=== PATIENT | male | born 1945 | race Caucasian/White ===

== ENCOUNTER 2018-03-27 10:14 | Emergency (ER) | payer MEDICARE ==
[2016-08-26 17:16] VITALS: Wt 79.4 kg
--- NOTE | 2018-03-27 10:17 | ER Report ---
History and Physical Time Seen By MD: 10:17 (ALIVIA ELLIOTT DO) HPI/ROS CHIEF COMPLAINT: Fall, left-sided pain HISTORY OF PRESENT ILLNESS: Patient is a 73-year-old male here with complaints of left-sided chest pain, back pain after falling last night. Patient reportedly slept on the floor overnight and woke up complaining of shortness breath, severe pain. The patient had marked difficulty taking a deep breath, headache exam n otable for crepitus of the left chest. Diminished breath sounds on the left side. Patient received fentanyl 200 g by EMS prior to arrival. REVIEW OF SYSTEMS: Constitutional: No fever, no chills. Eyes: No discharge. ENT: No sore throat. Cardiovascular: + left sided chest pain and crepitus on palpation of left chest wall, no palpitations. Respiratory: No cough, + significant shortness of breath, + diminished BS of left lung. Gastrointestinal: No abdominal pain, no vomiting. Genitourinary: No hematuria. Musculoskeletal: + back pain. Skin: No rashes. Neurological: No headache. Moving all extremities (ALIVIA ELLIOTT DO) Allergies: Coded Allergies: No Known Drug Allergies (Unverified , 07/12/13) Home Meds Active Scripts Tiotropium [place] (SPIRIVA) 18 Mcg/Cap Inh, 1 PUFF INH QDAYR, #1 INH Prov:NIC GIBSON MD 08/31/16 Reported Medications Budesonide/Formoterol Fumarate (SYMBICORT 160-4.5 MCG INHALER) 10.2 Gm Inh, 10.2 GM INH BID, INH 09/14/14 Ipratropium/Albuterol Sulfate (DUONEB 0.5 MG-3 MG/3 ML SOLN) 3 Ml Ampul.neb, 3 ML IH Q6-8H PRN for SHORTNESS OF BREATH 07/12/13 Hx Smoking: Yes Smoking Status: Former Smoker Exposure to Second Hand Smoke?: No Hx Substance Use Disorder: No Hx Alcohol Use: Yes (DAILY) (ALIVIA ELLIOTT DO) Constitutional Vital Sign - Last 24 Hours 03/27/18 03/27/18 03/27/18 03/27/18 10:45 10:56 11:05 11:10 Pulse 90 Resp 16 B/P (MAP) 162/95 159/72 (101) 156/78 (104) Pulse Ox 99 O2 Delivery Non-Rebreather O2 Flow Rate 15.0 03/27/18 03/27/18 03/27/18 03/27/18 11:15 11:20 11:25 11:34 Temp 98.0 Pulse 87 Resp 19 B/P (MAP) 155/68 (97) 156/69 (98) 147/77 (100) Pulse Ox 85 (JOCELYNE VITAL PHLEBOTOMY PROGRAM COORDINATOR-BC) Physical Exam General Appearance: The patient is alert, has no immediate need for airway protection and no signs of toxicity. Moderate distress secondary to pain and shortness breath Eyes: Pupils equal and round no pallor or injection. ENT, Mouth: Mucous membranes are moist. Respiratory: Diminished lung sounds the left lower lung shaffer. Crepitus on palpation of the left chest wall Cardiovascular: Regular rate and rhythm. Gastrointestinal: Abdomen is soft and non tender, no masses, bowel sounds josé miguel l. Neurological: Moving all extremities spontaneously, alert and oriented Skin: Warm and dry, no rashes. Musculoskeletal: Neck is supple + tender on palpation Extremities are nontender, nonswollen and have full range of motion. DIFFERENTIAL DIAGNOSIS: After history and physical exam differential diagnosis was considered for pneumothorax, fracture, hematoma, musculoskeletal strain, intracranial bleed, spinal fracture (ALIVIA ELLIOTT DO) Medical Decision Making Data Points Result Diagram: 03/27/18 0956 03/27/18 0956 Laboratory Hematology Test 03/27/18 00:00 03/27/18 09:56 03/27/18 10:50 Total Creatine Kinase 848 U/L (55-170) Red Blood Count 4.55 M/uL (4.00-5.60) Mean Corpuscular Volume 100.6 fL (80.0-96.0) Mean Corpuscular Hemoglobin 34.0 pg (26.0-33.0) Mean Corpuscular Hemoglobin Concent 33.8 g/dL (32.0-36.0) Red Cell Distribution Width 13.0 % (11.5-14.5) Mean Platelet Volume 7.3 fL (7.2-11.1) Neutrophils (%) (Auto) 79.2 % (39.4-72.5) Lymphocytes (%) (Auto) 13.1 % (17.6-49.6) Monocytes (%) (Auto) 7.1 % (4.1-12.4) Eosinophils (%) (Auto) 0.1 % (0.4-6.7) Basophils (%) (Auto) 0.5 % (0.3-1.4) Nucleated RBC Relative Count (auto) 0.1 /100WBC Neutrophils # (Auto) 10.2 K/uL (2.0-7.4) Lymphocytes # (Auto) 1.7 K/uL (1.3-3.6) Monocytes # (Auto) 0.9 K/uL (0.3-1.0) Eosinophils # (Auto) 0.0 K/uL (0.0-0.5) Basophils # (Auto) 0.1 K/uL (0.0-0.1) Nucleated RBC Absolute Count (auto) 0.01 K/uL Prothrombin Time 11.8 seconds (12.0-14.4) Prothromb Time International Ratio 0.87 Activated Partial Thromboplast Time 26 seconds (23-35) Sodium Level 129 mmol/L (137-145) Potassium Level 4.8 mmol/L (3.5-5.0) Chloride Level 95 mmol/L (98-107) Carbon Dioxide Level 24 mmol/L (22-30) Blood Urea Nitrogen 10 mg/dl (9-21) Creatinine 0.70 mg/dl (0.66-1.25) Glomerular Filtration Rate Calc > 60.0 Random Glucose 100 mg/dl (75-110) Lactate 1.8 mmol/L (0.7-2.1) Calcium Level 9.2 mg/dl (8.4-10.2) Total Bilirubin 1.2 mg/dl (0.2-1.3) Aspartate Amino Transf (AST/SGOT) 56 U/L (0-35) Alanine Aminotransferase (ALT/SGPT) 36 U/L (0-56) Alkaline Phosphatase 122 U/L (0-126) Total Protein 8.7 g/dl (6.3-8.2) Albumin 5.1 g/dl (3.5-5.0) Lipase 37 U/L (23-300) Urine Color Yellow Urine Clarity Clear Urine pH 5.0 pH (4.8-9.5) Urine Specific [place] 1.021 Urine Protein 30 mg/dL (NEGATIVE) Urine Glucose (UA) Negative mg/dL (NEGATIVE) Urine Ketones 20 mg/dL (NEGATIVE) Urine Blood Negative (NEGATIVE) Urine Nitrite Negative (NEGATIVE) Urine Bilirubin Negative (NEGATIVE) Urine Urobilinogen Negative mg/dL (0.2-1.9) Urine Leukocyte Esterase Negative (NEGATIVE) Urine RBC None /HPF (0-2/HPF) Urine WBC <1 /HPF (0-5/HPF) Urine Squamous Epithelial Cells None /LPF (NONE-FEW) Urine Bacteria Negative /HPF (NONE-FEW) Urine Hyaline Casts Many /LPF (NONE-FEW) Urine Mucus Few /HPF (NONE-FEW) Chemistry Test 03/27/18 00:00 03/27/18 09:56 03/27/18 10:50 Total Creatine Kinase 848 U/L (55-170) White Blood Count 12.9 k/uL (4.5-11.0) Red Blood Count 4.55 M/uL (4.00-5.60) Hemoglobin 15.5 g/dL (14.0-18.0) Hematocrit 45.7 % (42.0-52.0) Mean Corpuscular Volume 100.6 fL (80.0-96.0) Mean Corpuscular Hemoglobin 34.0 pg (26.0-33.0) Mean Corpuscular Hemoglobin Concent 33.8 g/dL (32.0-36.0) Red Cell Distribution Width 13.0 % (11.5-14.5) Platelet Count 410 K/uL (150-450) Mean Platelet Volume 7.3 fL (7.2-11.1) Neutrophils (%) (Auto) 79.2 % (39.4-72.5) Lymphocytes (%) (Auto) 13.1 % (17.6-49.6) Monocytes (%) (Auto) 7.1 % (4.1-12.4) Eosinophils (%) (Auto) 0.1 % (0.4-6.7) Basophils (%) (Auto) 0.5 % (0.3-1.4) Nucleated RBC Relative Count (auto) 0.1 /100WBC Neutrophils # (Auto) 10.2 K/uL (2.0-7.4) Lymphocytes # (Auto) 1.7 K/uL (1.3-3.6) Monocytes # (Auto) 0.9 K/uL (0.3-1.0) Eosinophils # (Auto) 0.0 K/uL (0.0-0.5) Basophils # (Auto) 0.1 K/uL (0.0-0.1) Nucleated RBC Absolute Count (auto) 0.01 K/uL Prothrombin Time 11.8 seconds (12.0-14.4) Prothromb Time International Ratio 0.87 Activated Partial Thromboplast Time 26 seconds (23-35) Glomerular Filtration Rate Calc > 60.0 Lactate 1.8 mmol/L (0.7-2.1) Calcium Level 9.2 mg/dl (8.4-10.2) Total Bilirubin 1.2 mg/dl (0.2-1.3) Aspartate Amino Transf (AST/SGOT) 56 U/L (0-35) Alanine Aminotransferase (ALT/SGPT) 36 U/L (0-56) Alkaline Phosphatase 122 U/L (0-126) Total Protein 8.7 g/dl (6.3-8.2) Albumin 5.1 g/dl (3.5-5.0) Lipase 37 U/L (23-300) Urine Color Yellow Urine Clarity Clear Urine pH 5.0 pH (4.8-9.5) Urine Specific [place]oyall 1.021 Urine Protein 30 mg/dL (NEGATIVE) Urine Glucose (UA) Negative mg/dL (NEGATIVE) Urine Ketones 20 mg/dL (NEGATIVE) Urine Blood Negative (NEGATIVE) Urine Nitrite Negative (NEGATIVE) Urine Bilirubin Negative (NEGATIVE) Urine Urobilinogen Negative mg/dL (0.2-1.9) Urine Leukocyte Esterase Negative (NEGATIVE) Urine RBC None /HPF (0-2/HPF) Urine WBC <1 /HPF (0-5/HPF) Urine Squamous Epithelial Cells None /LPF (NONE-FEW) Urine Bacteria Negative /HPF (NONE-FEW) Urine Hyaline Casts Many /LPF (NONE-FEW) Urine Mucus Few /HPF (NONE-FEW) Coagulation Test 03/27/18 09:56 Prothrombin Time 11.8 seconds Prothromb Time International Ratio 0.87 Activated Partial Thromboplast Time 26 seconds Urinalysis Test 03/27/18 10:50 Urine Color Yellow Urine Clarity Clear Urine pH 5.0 pH (4.8-9.5) Urine Specific [place] 1.021 Urine Protein 30 mg/dL (NEGATIVE) Urine Glucose (UA) Negative mg/dL (NEGATIVE) Urine Ketones 20 mg/dL (NEGATIVE) Urine Blood Negative (NEGATIVE) Urine Nitrite Negative (NEGATIVE) Urine Bilirubin Negative (NEGATIVE) Urine Urobilinogen Negative mg/dL (0.2-1.9) Urine Leukocyte Esterase Negative (NEGATIVE) Urine RBC None /HPF (0-2/HPF) Urine WBC <1 /HPF (0-5/HPF) Urine Squamous Epithelial Cells None /LPF (NONE-FEW) Urine Bacteria Negative /HPF (NONE-FEW) Urine Hyaline Casts Many /LPF (NONE-FEW) Urine Mucus Few /HPF (NONE-FEW) (JOCELYNE VITAL PHLEBOTOMY PROGRAM COORDINATOR-) EKG/Imaging EKG Interpretation PATIENT NAME: FAUSTINO SANDS : [id number] MR: [id number] V: [id number] EXAM DATE: ORDERING PHYSICIAN: ALIVIA ELLIOTT TECHNOLOGIST: COLBY Test Reason : TRAUMA Blood Pressure : / mmHG Vent. Rate : 087 BPM Atrial Rate : 087 BPM P-R Int : 150 ms QRS Dur : 074 ms QT Int : 390 ms P-R-T Axes : 080 082 080 degrees QTc Int : 469 ms Normal sinus rhythm Septal infarct (cited on or before 27-MAR-2018) Abnormal ECG When compared with ECG of 25-AUG-2016 10:32, Previous ECG has undetermined rhythm, needs review Referred By: EARL Confirmed By: Imaging PATIENT NAME: Faustino Sands : 1945 MR: [id number] V: [id number] EXAM DATE: [id number] ORDERING PHYSICIAN: ALIVIA ELLIOTT TECHNOLOGIST: Location: [facility] [place] Patient: Faustino Sands : 1945 Visit/Account:[id number] Date of Sevice: 03/27/2018 CT CHEST ABDOMEN PELVIS W/O CON HISTORY: fall TECHNIQUE: CT thoracic inlet to the pubic symphysis obtained without IV contrast. One of the following dose optimization techniques was utilized in the performance of this exam: automated exposure control; adjustment of the mA and/or kV according to the patient's size; or use of an iterative reconstruction technique. Specific details can be referenced in the facility's radiology CT exam operational policy. CONTRAST: None. COMPARISON: CT abdomen and pelvis 08/25/2016. FINDINGS: Lungs: There is a left-sided pneumothorax, which is moderate in size. Right lung is well-expanded. There is a benign calcified granuloma at the right lung base. Mediastinum: Heart size is normal. There is no mediastinal adenopathy. Musculoskeletal/soft tissues: Subcutaneous emphysema seen along the left chest. The left clavicle, and scapula are intact. Nondisplaced fractures of the left ribs, numbers 7, 8, 9, and 10 are seen. The right ribs are intact. Liver/gallbladder: The liver demonstrates normal attenuation without evidence of mass. The gallbladder is normal. Spleen: Normal. Adrenals: Normal. Pancreas: Normal. Kidneys/: Both kidneys demonstrate normal attenuation without evidence of hydronephrosis or mass. Pelvis/Bladder: Urinary bladder is normal. GI: There is no focal abnormality in the small bowel or colon. Vessels/nodes: There are atherosclerotic changes in the abdominal aorta. Bones/soft tissues: The bones of the pelvis are intact. There are postoperative changes in the right femoral neck. The vertebral bodies and posterior elements are intact. The sternum is intact. IMPRESSION: 1. Moderate size left-sided pneumothorax. No evidence of tension pneumothorax, the mediastinum is in midline. 2. Multiple left-sided rib fractures, involving the left ribs 7, 8, 9, and 10. 3. Benign calcified granuloma right lower lobe of the lung. 4. No evidence of traumatic injury in the solid organs of the abdomen or pelvis. Location: [facility] [place] Patient: Faustino Sands : 1945 Visit/Account:[id number] Date of Sevice: 03/27/2018 CT VERTEBRA CERVICAL (NON CON) EXAMINATION: Cervical spine CT Additional Pertinent history: Fall COMPARISON STUDIES: none TECHNIQUE: Axial images were obtained from the skull base through the upper thoracic spine without IV contrast administration. Coronal and sagittal r eformatted images were obtained from the axial source data. One of the following dose optimization techniques was utilized in the performance of this exam: automated exposure control; adjustment of the mA and/or kV according to the patient's size; or use of an iterative reconstruction technique. Specific details can be referenced in the facility's radiology CT exam operational policy. FINDINGS: Pre-vertebral soft tissues: negative Alignment: The vertebral bodies and posterior elements demonstrate normal alignment. Vertebral bodies: There is a nondisplaced fracture at the base of the dens. The remaining vertebral bodies and posterior elements are intact. Posterior elements: negative Disc Spaces: Degenerative disc disease changes seen at C3-4 C4-5 C5-6 and C6-7. Visualized lung / mediastinum: Left-sided pneumothorax is partially visualized. Simultaneous emphysema along the left neck is seen. IMPRESSION: 1. Nondisplaced fracture the base the dens of the C2 vertebral body. 2. Remaining cervical vertebral bodies and posterior elements are intact. 3. Subcutaneous emphysema along the left neck. This was called by Dr. Escalante to ALIVIA ELLIOTT on 03/27/2018 11:32 AM Location: [facility] [place] Patient: Faustino Sands : 1945 Visit/Account:[id number] Date of Sevice: 03/27/2018 CT BRAIN NO CONTRAST Indication: TRAUMA Comparison: None. Technique: Noncontrast head CT vertex to the skull base obtained. One of the following dose optimization techniques was utilized in the performance of this exam: automated exposure control; adjustment of the mA and/or kV according to the patient's size; or use of an iterative reconstruction technique. Specific details can be referenced in the facility's radiology CT exam operational policy. Findings: Brain: Rdz-white matter differentiation and cortex are maintained. Ventricles and sulci:Ventricles and sulci are symmetric in size. There is no abnormal extra-axial fluid collection or mass. Paranasal sinuses:Visualized paranasal sinuses and mastoid air cells are clear. Calvarium:Bones of the skull and skull base are intact. Orbits and soft tissues: Right and left globes and soft tissues of the head are normal. Impression: Negative head CT. No evidence of infarct hemorrhage mass or fracture. (ALIVIA ELLIOTT DO) ED Course/Re-evaluation ED Course Patient is a 73-year-old male here with complaints of left-sided chest and back pain after a fall last night. Patient was found to have a moderate pneumothorax with left-sided rib fractures and palpable crepitus the left anterior chest wall. Patient was initially brought to the CT scanner there which time a nondisplaced C2 fracture was identified, ribs 7 through 10 nondisplaced fractures were identified. Patient was given ketamine and Ativan and a 16 Armenian chest tube was placed with good reexpansion of the left pneumothorax. I discussed the patient with Dr. Miller who recommended transfer due to cervical spine fracture. I discussed the patient with trauma surgeon on-call at [facility] accepted the patient (Dr. Mathews). Patient remained hemodynamically stable throughout course. Patient was neurologically intact prior to discharge. Decision to Disposition Date: Mar 27, 2018 Decision to Disposition Time: 12:52 (ALIVIA ELLIOTT DO) ED Course Procedure: Chest tube placement. The indication for the procedure was a pneumothorax. A timeout was observed. The patient was prepped in a sterile fashion. The patient was anesthetized with 1% lidocaine. After blunt dissection a 16 Armenian chest tube was placed in the 5th intercostal space on the left side. The tube was sutured in place and dressed. Post placement chest x-ray demonstrated the tube to be in the appropriate position. Following placement of the tube the patient's condition was improved. The patient tolerated the procedure well there were no complications. The procedure was performed by myself. (JOCELYNE VITAL-FOZIA) Depart Departure Latest Vital Signs Vital Signs Date Time Temp Pulse Resp B/P (MAP) Pulse Ox O2 Delivery O2 Flow Rate FiO2 03/27/18 11:34 98.0 03/27/18 11:25 87 19 147/77 (100) 85 03/27/18 10:56 15.0 03/27/18 10:45 Non-Rebreather (JOCELYNE VITAL-FOZIA) Impression: Primary Impression: Pneumothorax Additional Impressions: Rib fractures Dens fracture Condition: Improved Disposition: HOME OR SELF-CARE Problem Qualifiers ALIVIA ELLIOTT DO Mar 27, 2018 10:17 JOCELYNE VITAL-FOZIA Mar 27, 2018 12:23
[2018-03-27] MEDS ORDERED: DIPHTH/TETANUS/ACEL. PERTUSSIS IM ONE (10:25)
[2018-03-27 10:42] LABS: INR 0.87; PLATELET COUNT, AUTOMATED 410 K/uL (150-450)
[2018-03-27] MEDS ORDERED: LORazepam 2 MG/ML VIAL IVP ONE (11:15)
[2018-03-27] MEDS ORDERED: KETAMINE HCL 500 MG/5 ML VIAL IVP ONE (11:15)
--- NOTE | 2018-03-27 11:44 | RADIOLOGY IMAGING REPORT ---
FACILITY: [facility] [place] PATIENT NAME: Juan Sands : 1945 MR: [id number] V: [id number] EXAM DATE: ORDERING PHYSICIAN: ALIVIA ELLIOTT TECHNOLOGIST: Location: [facility] Patient: Juan Sands : 1945 Visit/Account:[id number] Date of Sevice: 03/27/2018 CT BRAIN NO CONTRAST Indication: TRAUMA Comparison: None. Technique: Noncontrast head CT vertex to the skull base obtained. One of the following dose optimizat ion techniques was utilized in the performance of this exam: automated exposure control; adjustment o f the mA and/or kV according to the patient's size; or use of an iterative reconstruction technique. Specific details can be referenced in the facility's radiology CT exam operational policy. Findings: Brain: Rdz-white matter differentiation and cortex are maintained. Ventricles and sulci:Ventricles and sulci are symmetric in size. There is no abnormal extra-axial flu id collection or mass. Paranasal sinuses:Visualized paranasal sinuses and mastoid air cells are clear. Calvarium:Bones of the skull and skull base are intact. Orbits and soft tissues: Right and left globes and soft tissues of the head are normal. Impression: Negative head CT. No evidence of infarct hemorrhage mass or fracture. This was called by Dr. Escalante to ALIVIA ELLIOTT on 03/27/2018 11:30 AM Report Dictated By: Ronnie Escalante at 03/27/2018 11:30 AM Report E-Signed By: Ronnie Escalante at 03/27/2018 11:39 AM WSN:[id number]
--- NOTE | 2018-03-27 11:44 | RADIOLOGY IMAGING REPORT ---
FACILITY: [facility] [place] PATIENT NAME: Juan Sands : 1945 MR: [id number] V: [id number] EXAM DATE: ORDERING PHYSICIAN: ALIVIA ELLIOTT TECHNOLOGIST: Location: [facility] Patient: Juan Sands : 1945 Visit/Account:[id number] Date of Sevice: 03/27/2018 CT VERTEBRA CERVICAL (NON CON) EXAMINATION: Cervical spine CT Additional Pertinent history: Fall COMPARISON STUDIES: none TECHNIQUE: Axial images were obtained from the skull base through the upper thoracic spine without I V contrast administration. Coronal and sagittal reformatted images were obtained from the axial [facility] e data. One of the following dose optimization techniques was utilized in the performance of this exam: autom ated exposure control; adjustment of the mA and/or kV according to the patient's size; or use of an i terative reconstruction technique. Specific details can be referenced in the facility's radiology CT exam operational policy. FINDINGS: Pre-vertebral soft tissues: negative Alignment: The vertebral bodies and posterior elements demonstrate normal alignment. Vertebral bodies: There is a nondisplaced fracture at the base of the dens. The remaining vertebral b odies and posterior elements are intact. Posterior elements: negative Disc Spaces: Degenerative disc disease changes seen at C3-4 C4-5 C5-6 and C6-7. Visualized lung / mediastinum: Left-sided pneumothorax is partially visualized. Simultaneous emphysem a along the left neck is seen. IMPRESSION: 1. Nondisplaced fracture the base the dens of the C2 vertebral body. 2. Remaining cervical vertebral bodies and posterior elements are intact. 3. Subcutaneous emphysema along the left neck. This was called by Dr. Escalante to ALIVIA ELLIOTT on 03/27/2018 11:32 AM Report Dictated By: Ronnie Escalante at 03/27/2018 11:32 AM Report E-Signed By: Ronnie Escalante at 03/27/2018 11:39 AM WSN:[id number]
--- NOTE | 2018-03-27 11:45 | RADIOLOGY IMAGING REPORT ---
FACILITY: [facility] [place] PATIENT NAME: Juan Sands : 1945 MR: [id number] V: [id number] EXAM DATE: ORDERING PHYSICIAN: ALIVIA ELLIOTT TECHNOLOGIST: Location: [facility] Patient: Juan Sands : 1945 Visit/Account:[id number] Date of Sevice: 03/27/2018 CT CHEST ABDOMEN PELVIS W/O CON HISTORY: fall TECHNIQUE: CT thoracic inlet to the pubic symphysis obtained without IV contrast. One of the followi ng dose optimization techniques was utilized in the performance of this exam: automated exposure cont rol; adjustment of the mA and/or kV according to the patient's size; or use of an iterative reconstru ction technique. Specific details can be referenced in the facility's radiology CT exam operational policy. CONTRAST: None. COMPARISON: CT abdomen and pelvis 08/25/2016. FINDINGS: Lungs: There is a left-sided pneumothorax, which is moderate in size. Right lung is well-expanded. Th ere is a benign calcified granuloma at the right lung base. Mediastinum: Heart size is normal. There is no mediastinal adenopathy. Musculoskeletal/soft tissues: Subcutaneous emphysema seen along the left chest. The left clavicle, an d scapula are intact. Nondisplaced fractures of the left ribs, numbers 7, 8, 9, and 10 are seen. The right ribs are intact. Liver/gallbladder: The liver demonstrates normal attenuation without evidence of mass. The gallblad baltazar is normal. Spleen: Normal. Adrenals: Normal. Pancreas: Normal. Kidneys/: Both kidneys demonstrate normal attenuation without evidence of hydronephrosis or mass. Pelvis/Bladder: Urinary bladder is normal. GI: There is no focal abnormality in the small bowel or colon. Vessels/nodes: There are atherosclerotic changes in the abdominal aorta. Bones/soft tissues: The bones of the pelvis are intact. There are postoperative changes in the right femoral neck. The vertebral bodies and posterior elements are intact. The sternum is intact. IMPRESSION: 1. Moderate size left-sided pneumothorax. No evidence of tension pneumothorax, the mediastinum is in midline. 2. Multiple left-sided rib fractures, involving the left ribs 7, 8, 9, and 10. 3. Benign calcified granuloma right lower lobe of the lung. 4. No evidence of traumatic injury in the solid organs of the abdomen or pelvis. This was called by Dr. Escalante to ALIVIA ELLIOTT on 03/27/2018 11:14 AM Report Dictated By: Ronnie Escalante at 03/27/2018 11:14 AM Report E-Signed By: Ronnie Escalante at 03/27/2018 11:39 AM WSN:[id number]
[2018-03-27] MEDS ORDERED: HYDROMORPHONE HCL 1 MG/ML SYRINGE IVP ONE (12:45)
--- NOTE | 2018-03-27 12:59 | EKG ---
FACILITY: [facility] PATIENT NAME: FAUSTINO GUPTA : [id number] MR: [id number] V: [id number] EXAM DATE: ORDERING PHYSICIAN: ALIVIA ELLIOTT TECHNOLOGIST: COLBY Boswell Reason : TRAUMA Blood Pressure : / mmHG Vent. Rate : 087 BPM Atrial Rate : 087 BPM P-R Int : 150 ms QRS Dur : 074 ms QT Int : 390 ms P-R-T Axes : 080 082 080 degrees QTc Int : 469 ms Sinus rhythm Poor R wave progression anteriorly Possible biatrial enlargement Abnormal ECG Confirmed by JENNIFER SOFIA ([id number]) on 03/27/2018 4:26:33 PM Referred By: EARL Confirmed By:JENNIFER SOFIA
--- NOTE | 2018-03-27 13:36 | RADIOLOGY IMAGING REPORT ---
FACILITY: [facility] PATIENT NAME: Juan Sands : 1945 MR: [id number] V: [id number] EXAM DATE: ORDERING PHYSICIAN: ALIVIA ELLIOTT TECHNOLOGIST: Location: [facility] [place] Patient: Juan Sands : 1945 Visit/Account:[id number] Date of Sevice: 03/27/2018 CHEST SINGLE AP Indication: Chest tube placement. Comparison: 08/25/2016 Findings: There is a small caliber catheter device overlying the left lung base and left chest wall. Correlate with the chest tube insertion site. There is a large amount of subcutaneous emphysema involving the l eft chest wall. This extends into the left neck soft tissues. A tiny residual apical pneumothorax is seen. A calcified nodule in the right lung base is unchanged. Right lung is otherwise clear. Heart size is normal. Scattered atherosclerosis noted in the aortic arch. Multiple left-sided rib fractures are seen. IMPRESSION: 1. New left sided chest tube overlying the left lung base. This is not well seen radiographically. Co rrelate clinically. 2. Extensive left chest wall subcutaneous emphysema. 2. Tiny suspected residual left apical pneumothorax. Report Dictated By: Miguel Norton at 03/27/2018 1:26 PM Report E-Signed By: Miguel Norton at 03/27/2018 1:32 PM WSN:[id number]
[2018-03-27 15:05] VITALS: BP 133/65
== END 2018-03-27 15:25 | disposition short-term general hospital (02) ==
LOC: ER 10:29
DX: S27.0XXA Traumatic pneumothorax, initial encounter (principal); S22.42XA Multiple fractures of ribs, left side, initial encounter for closed fracture; S12.112A Nondisplaced Type II dens fracture, initial encounter for closed fracture; W19.XXXA Unspecified fall, initial encounter
CPT/HCPCS: 32551; 70450; 71045; 71250; 72125; 74176; 81001; 82550; 83605; 83690; 85025; 85610; 85730; 86850; 86900; 86901; 90715; 93005; 96372; 96374; 96375; 99285; A7048; C1758; J1170; J2060; L0172; 82040; 82247; 82310; 82374; 82435; 82565; 82947; 84075; 84132; 84155; 84295; 84450; 84460; 84520

== ENCOUNTER → 2018-03-27 | Outpatient (CLI) | payer MEDICARE ==
[2016-08-26 17:16] VITALS: BMI 20.1
[~2018-03-27] MED LIST: ACLI400A2 IH; AMOX-559 PO; BUDE10.2 INH; DOXY-179 PO; IPRA3AMP37 IH; OXYC-823 PO; OXYC-865 PO; PRED-1 PO; RIVA10TA PO; TIO18R INH
== END ==
LOC: AMB 09:25
PROVIDERS: ATTEND Nurse Practitioner
DX: R07.81 Pleurodynia (principal); R06.00 Dyspnea, unspecified; R53.1 Weakness; W19.XXXA Unspecified fall, initial encounter
CPT/HCPCS: A0425; A0433

== ENCOUNTER → 2018-03-27 | Outpatient (CLI) | payer MEDICARE ==
[2016-08-26 17:16] VITALS: BMI 20.1
== END ==
LOC: AMB 14:58
PROVIDERS: ATTEND Nurse Practitioner
DX: S27.0XXA Traumatic pneumothorax, initial encounter (principal); S22.42XA Multiple fractures of ribs, left side, initial encounter for closed fracture
CPT/HCPCS: A0425; A0426